=== PATIENT | male | born 1935 | race Hispanic/Latino ===

== ENCOUNTER 2017-06-06 22:54 | Emergency (ER) | payer MEDICARE ==
[2017-06-06 22:54] VITALS: BMI 32.5
--- NOTE | 2017-06-06 23:17 | ED PDOC ---
Arrival/HPI - General Chief Complaint: Chest Pain Time Seen by Provider: 06/06/17 23:05 Historian: Patient - History of Present Illness Narrative History of Present Illness (Text): 06/06/17 23:14 Rosendo Fajardo is an 81 year old male, whose past medical history includes CAD with coronary stents, 3 MIs, CABG, hypertension, hyperlipidemia, AAA repair, CVA , and peripheral vascular disease, who presents to the Emergency department complaining of chest pain. Patient states he has been experiencing left-sided chest pain for the past 3 hours. Patient also notes a tender/firm /raised area to left periareola/pectoral area. Patient denies any fever, chills, shortness of breath, nausea, vomiting, diarrhea, urinary symptoms, back pain, neck pain, headache, dizziness, or any other complaints. Time/Duration: 1-3 hours Symptom Onset: Gradual Symptom Course: Unchanged Activities at Onset: Light Context: Home Past Medical History - Provider Review Nursing Documentation Reviewed: Yes - Infectious Disease Hx of Infectious Diseases: None - Cardiac Hx Angina: Yes Hx CA: Yes - Pulmonary Hx Respiratory Disorders: No - Neurological Hx Neurological Disorder: Yes HX Cerebrovascular Accident: Yes (multiple cva's) - HEENT Hx HEENT Disorder: No - Renal Hx Renal Disorder: No - Endocrine/Metabolic Hx Endocrine Disorders: No - Hematological/Oncological Hx Blood Disorders: No - Integumentary Hx Dermatological Disorder: No - Musculoskeletal/Rheumatological Hx Musculoskeletal Disorders: No - Gastrointestinal Hx Gastrointestinal Disorders: No - Genitourinary/Gynecological Hx Genitourinary Disorders: No - Psychiatric Hx Substance Use: No - Surgical History Hx Cardiac Catheterization: Yes Hx Coronary Artery Bypass Graft: Yes - Anesthesia Hx Anesthesia Reactions: No Family/Social History - Physician Review Nursing Documentation Reviewed: Yes Family/Social History: Unknown Family HX Smoking Status: Former Smoker Hx Alcohol Use: Yes Hx Substance Use: No Allergies/Home Meds Allergies/Adverse Reactions: Allergies No Known Allergies Allergy (Verified 06/07/17 02:22) Home Medications: Home Meds Medication Instructions Recorded Confirmed Atorvastatin [Lipitor] 80 mg PO HS 02/12/16 06/07/17 Aspirin [Adult Low Dose Aspirin EC] 81 mg PO DAILY 06/07/17 06/07/17 Calcium Carbonate/Vitamin D3 1 tab PO DAILY 06/07/17 06/07/17 [Calcium 500 + Vit D Caplet] Carvedilol [Coreg] 3.125 mg PO DAILY 06/07/17 06/07/17 Losartan [Cozaar] 50 mg PO DAILY 06/07/17 06/07/17 Vit B Cmplx 3/Folic AC/C/Biot 1 tab PO DAILY 06/07/17 06/07/17 [Web Sizer-Shantel Rx Tablet] Review of Systems - Physician Review All systems were reviewed & negative as marked: Yes - Review of Systems Constitutional: Normal. absent: Fevers Eyes: Normal ENT: Normal Respiratory: Normal. absent: SOB, Cough Cardiovascular: Chest Pain Gastrointestinal: Normal. absent: Abdominal Pain, Diarrhea, Nausea, Vomiting Genitourinary Male: Normal. absent: Dysuria, Frequency, Hematuria, Urinary Output Changes Musculoskeletal: Normal. absent: Back Pain, Neck Pain Skin: Abscess (+left pectoral abscess) Neurological: Normal. absent: Headache, Dizziness Endocrine: Normal Hemo/Lymphatic: Normal Psychiatric: Normal Physical Exam Vital Signs Reviewed: Yes Vital Signs Temp Pulse Resp BP Pulse Ox 06/07/17 04:39 59 L 109 H 107/58 L 98 06/07/17 02:20 50 L 18 157/71 H 97 06/07/17 02:04 51 L 16 158/83 H 98 06/06/17 22:54 97.6 F 54 L 18 144/80 96 Temperature: Afebrile Blood Pressure: Normal Pulse: Regular Respiratory Rate: Normal Appearance: Positive for: Well-Appearing, Non-Toxic, Comfortable Pain Distress: None Mental Status: Positive for: Alert and Oriented X 3 - Systems Exam Head: Present: Atraumatic, Normocephalic Pupils: Present: PERRL Extroacular Muscles: Present: EOMI Conjunctiva: Present: Normal Mouth: Present: Moist Mucous Membranes Neck: Present: Normal Range of Motion. No: Meningeal Signs, MIDLINE TENDERNESS Respiratory/Chest: Present: Clear to Auscultation, Good Air Exchange. No: Respiratory Distress, Accessory Muscle Use Cardiovascular: Present: Regular Rate and Rhythm, Normal S1, S2. No: Murmurs Abdomen: No: Tenderness, Distention, Peritoneal Signs Back: Present: Normal Inspection Upper Extremity: Present: Normal Inspection. No: Cyanosis, Edema Lower Extremity: Present: Normal Inspection. No: Edema Neurological: Present: GCS=15, CN II-XII Intact, Speech Normal Skin: Present: Warm, Dry, Normal Color, Abscess (Area of induration to left pectoral/periareola area with overlying erythema and palpable tenderness). No: Rashes Psychiatric: Present: Alert, Oriented x 3, Normal Insight, Normal Concentration Medical Decision Making ED Course and Treatment: 06/06/17 23:14 Impression: 81 year old male complaining of left-sided chest pain x3 hours. Plan: -- EKG -- Chest X-ray -- Labs, cardiac enzymes, blood cultures -- Reassess and disposition Progress Notes: Reviewed EKG, junctional rhythm at 56 bpm. Inferior infarct. Non-specific ST/T wave changes. 06/07/17 00:41 Chest X-ray reviewed, shows no acute processes. 06/07/17 01:[address] Mcgrath, who is aware and agrees with plan. Accepts pt in to his service. Pt will go to Telemetry observation for chest pain. Requests Dr. Cassidy and Dr. Whalen on consult. - Lab Interpretations Lab Results: 06/06/17 23:34 06/06/17 23:34 Lab Results 06/06/17 23:34: PT 11.1, INR 0.97, APTT 26.0 06/06/17 23:34: WBC 5.1 D, RBC 4.20, Hgb 13.5 L, Hct 39.2 L, MCV 93.3, MCH 32.1 , MCHC 34.4, RDW 13.4, Plt Count 144, MPV 8.9 06/06/17 23:34: Sodium 143, Potassium 4.1, Chloride 107, Carbon Dioxide 25, Anion Gap 15, BUN 18, Creatinine 0.9, Est GFR ( Amer) > 60, Est GFR (Non- Af Amer) > 60, Random Glucose 91, Calcium 9.2, Total Bilirubin 0.9, AST 31, ALT 39, Alkaline Phosphatase 71, Lactate Dehydrogenase 459, Total Creatine Kinase 109, Troponin I < 0.01 D, Total Protein 6.6, Albumin 4.0, Globulin 2.6, Albumin /Globulin Ratio 1.6 I have reviewed the lab results: Yes - RAD Interpretation Radiology Orders: 06/06/17 23:16 CHEST PORTABLE [RAD] Stat Cloth Finisher: ED Physician - EKG Interpretation Interpreted by ED Physician: Yes Type: 12 lead EKG - Medication Orders Current Medication Orders: Discontinued Medications Vancomycin HCl (Vancomycin 1gm) 1 gm in 250 mls @ 167 mls/hr IVPB STAT STA PRN Reason: Protocol Stop: 06/07/17 02:29 Last Admin: 06/07/17 01:55 Dose: 167 mls/hr eMAR Start Stop Document 06/07/17 01:55 RG (Rec: 06/07/17 02:02 KILO [id number]) Intravenous Solution Start Date 06/07/17 Start Time 01:55 End Date 06/07/17 End time 03:34 Total Infusion Time 99 Ceftriaxone Sodium (Rocephin 1 Gram Ivpb) 1 gm in 100 mls @ 200 mls/hr IV ONCE STA PRN Reason: Protocol Stop: 06/07/17 01:23 Last Admin: 06/07/17 01:41 Dose: 200 mls/hr eMAR Start Stop Document 06/07/17 01:41 RG (Rec: 06/07/17 01:41 KILO [id number]) Intravenous Solution Start Date 06/07/17 Start Time 01:41 Morphine Sulfate (Morphine) 2 mg IVP STAT STA Stop: 06/07/17 01:07 Last Admin: 06/07/17 01:40 Dose: 2 mg MAR Pain Assessment Document 06/07/17 01:40 RG (Rec: 06/07/17 01:40 KILO [id number]) Pain Reassessment Is this a pain reassessment? Yes Sleep Is patient sleeping during reassessment? No Presence of Pain Presence of Pain Yes Pain Scale Used Pain Scale Used Numeric Location Left, Right or Bilateral Left Pain Location Body Site Chest Description Description Intermittent IVP Administration Document 06/07/17 01:40 RG (Rec: 06/07/17 01:40 KILO [id number]) Charges for Administration # of IVP Administrations 1 - Scribe Statement The provider has reviewed the documentation as recorded by the Stephany Ruiz Provider Scribe Attestation: All medical record entries made by the Scribe were at my direction and personally dictated by me. I have reviewed the chart and agree that the record accurately reflects my personal performance of the history, physical exam, medical decision making, and the department course for this patient. I have also personally directed, reviewed, and agree with the discharge instructions and disposition. Disposition/Present on Arrival - Present on Arrival Any Indicators Present on Arrival: No History of DVT/PE: No History of Uncontrolled Diabetes: No Urinary Catheter: No History of Decub. Ulcer: No History Surgical Site Infection Following: None - Disposition Have Diagnosis and Disposition been Completed?: Yes Diagnosis: Chest pain, Cellulitis Disposition: HOSPITALIZED Disposition Time: 01:25 Patient Plan: Observation Condition: STABLE Discharge Instructions (ExitCare): Chest Pain (ED), Cellulitis (ED)
[2017-06-06 23:21] VITALS: TEMP 97.6
[2017-06-07 00:21] LABS: HEMOGLOBIN 13.5 g/dL (14.0-18.0); MEAN CELL VOLUME 93.3 fl (80.0-105.0); MEAN CORPUSCULAR HEMOGLOBIN 32.1 pg (25.0-35.0); MEAN CORPUSCULAR HGB CONC 34.4 g/dl (31.0-37.0); MEAN PLATELET VOLUME 8.9 fl (7.0-11.0); RBC 4.2 10^6/uL (3.5-6.1); RED CELL DISTRIBUTION WIDTH 13.4 % (11.5-14.5)
[2017-06-07 00:22] LABS: WHITE BLOOD COUNT 5.1 10^3/ul (4.5-11.0)
[2017-06-07 00:28] LABS: ALB/GLOB RATIO 1.6 (1.1-1.8); ALT/SGPT 39 U/L (7-56); AST/SGOT 31 U/L (17-59); BLOOD UREA NITROGEN 18 mg/dL (7-21); CALCIUM 9.2 mg/dL (8.4-10.5); GFR AFRICAN-AMERICAN > 60; GFR NON-AFRICAN AMERICAN > 60
[2017-06-07 00:37] LABS: INR 0.97 (0.93-1.08); PROTHROMBIN TIME 11.1 SECONDS (9.4-12.5); TROPONIN I < 0.01 ng/mL
[2017-06-07] MEDS ORDERED: cefTRIAXone 1 gm 1 GM/100 ML BAG IV STA (00:54)
[2017-06-07] MEDS ORDERED: Vancomycin 1gm in NS 250ml 1 GM/250 ML BAG IVPB STA (01:00)
[2017-06-07] MEDS ORDERED: Morphine 4 mg/ml ISec IVP STA (01:06)
[2017-06-07 04:41] VITALS: BP 107/58; PULSE 59; RESP 109; O2SAT 98
--- NOTE | 2017-06-07 06:50 | CP.PCM.PN ---
Subjective - Date & Time of Evaluation Date of Evaluation: 06/07/17 Time of Evaluation: 05:14 - Subjective Subjective: Patient seen at the request of his RN who stated pt wants to leave AMA. He was just admitted for chest pain and cellulitis.He states he will go to the [facility] [address] where he usually goes for treatment. He does not want any further examinations,tests or treatment at this facility. His VS are stable and he is ambulatory. Patient was advised of the huge risk he is taking in leaving AMA,namely,he could have a heart attack,develop cardiac arrythmia,CHF,organ failure,seizures and or . He was also told his cellulitis could worsen and infection could spread,coul lead to . He stated he understands everything he was told,still wants to sign out AMA. Advised him to return to the ER if needed. He walked out after he signed AMA. Objective - Vital Signs/Intake and Output Vital Signs (last 24 hours): Temp Pulse Resp BP Pulse Ox 97.6 F 59 L 109 H 107/58 L 98 06/06/17 22:54 06/07/17 04:39 06/07/17 04:39 06/07/17 04:39 06/07/17 04:39 - Labs Labs: 06/06/17 23:34 06/06/17 23:34 PT 11.1 SECONDS (9.4-12.5) 06/06/17 23:34 INR 0.97 (0.93-1.08) 06/06/17 23:34 APTT 26.0 Seconds (25.1-36.5) 06/06/17 23:34
--- NOTE | 2017-06-07 10:44 | RAD ---
HISTORY: fever COMPARISON: 02/11/2016 FINDINGS: LUNGS: No active pulmonary disease. PLEURA: No significant pleural effusion identified, no pneumothorax apparent. CARDIOVASCULAR: No radiographic findings to suggest acute or significant cardiovascular disease. Incidental Finding(s): Postoperative changes related to sternotomy. OSSEOUS STRUCTURES: No significant abnormalities. VISUALIZED UPPER ABDOMEN: Normal. OTHER FINDINGS: None. IMPRESSION: No active disease. No significant interval change compared to the prior examination(s).
--- NOTE | 2017-06-07 22:27 | CARD ---
APPROVED REPORT EKG Measurement Heart [id number] <Conclusion> Sinus rhythm with 1st degree AV Block RSR' or QR pattern in V1 suggests right ventricular conduction delay Inferior infarct, age undetermined Abnormal ECG
== END 2017-06-07 05:19 | disposition left against medical advice (07) ==
LOC: ED 22:54 → ERH 06-07 01:26 → UNDOADMOB 06-07 01:26
DX: R07.9 Chest pain, unspecified (principal); L03.90 Cellulitis, unspecified; E78.5 Hyperlipidemia, unspecified; I10 Essential (primary) hypertension; I25.10 Atherosclerotic heart disease of native coronary artery without angina pectoris; Z87.891 Personal history of nicotine dependence
CPT/HCPCS: 71045; 80053; 82550; 83615; 84484; 85027; 85610; 85730; 87040; 93005; 96365; 96366; 96375; 99285; J0696; J2270